=== PATIENT | male | born 1990 | race Caucasian/White ===

== ENCOUNTER 2022-10-09 08:32 | Emergency (ER) | payer OTHER, SELFPAY ==
[2022-10-09 08:40] VITALS: BP 127/56; PULSE 83; RESP 16; TEMP 36.9; O2SAT 97
--- NOTE | 2022-10-09 09:07 | ED.GENADULT ---
HPI - General Adult General Chief complaint: Urogenital-Male Stated complaint: Headache/Low Back Pain Time Seen by Provider: 10/09/22 09:11 Source: patient Mode of arrival: ambulatory Limitations: no limitations History of Present Illness HPI narrative: 32-year-old male presenting for complaint of headache, feeling lightheaded and having bilateral low back pain since yesterday. Pain is worse in buttocks and back of thighs. He endorses intermittent hot and cold episodes And difficulty sleeping due to the pain. He denies sick contacts. He is not vaccinated for COVID or flu. yesterday he took migraine medication without relief in symptoms. He denies shortness of breath, wheezing, abd pain, nausea, vomiting, diarrhea, hematuria. He smokes over 2 packs per day. Also smokes marijuana. He denies alcohol use. He said he drinks large amount of soda and coffee daily. Related Data Home Medications Medication Instructions Recorded Confirmed sumatriptan succinate 25 mg tablet 25 mg PO USEASDIRECTD 10/09/22 10/09/22 Allergies Allergy/AdvReac Type Severity Reaction Status Date / Time Penicillins Allergy Rash Verified 10/09/22 09:34 Review of Systems Review of Systems: ROS per HPI All systems reviewed & are unremarkable except as noted in HPI and below PMFSH Comments At time of signature, I have reviewed and agree with nursing past medical, surgical, social and family history unless otherwise noted. Please see nursing chart for further information. There is no relevant family history pertinent to the presenting complaint Exam Narrative: GENERAL: ill-appearing, nontoxic HEAD: Normocephalic, atraumatic. EYES: EOMI. No redness or drainage. Conjunctivae normal. ENT: Mucous membranes pink and moist. No rhinorrhea. TMs normal bilaterally. Throat normal. Uvula midline. NECK: Normal AROM. Supple. right anterior cervical lymphadenopathy. CHEST: Clear to auscultation. HEART: Regular rate and rhythm. ABDOMEN: Soft, nontender, nondistended, normal active bowel sounds. No CVA tenderness. MUSCULOSKELETAL: No bony tenderness. EXTREMITIES: Normal range of motion. No edema. SKIN: Warm, dry, scattered scabs to bilateral arms. Capillary refill normal. Normal skin turgor. NEURO: No focal deficits. Alert and oriented x3. Gait steady. PSYCH: Normal affect. Course Course Emergency Course: Patient is aware of diagnosis, understands and agrees to treatment plan. Anticipatory guidance given. Patient agrees to follow-up as directed and is aware of reasons to seek care at the emergency department. Portions of this record may have been created with voice recognition software Level of Care: Express Care Visit Vital Signs Vital signs: Vital Signs Temperature 98.4 F 10/09/22 08:40 Pulse Rate 83 10/09/22 08:40 Respiratory Rate 16 10/09/22 08:40 Blood Pressure 127/56 L 10/09/22 08:40 Pulse Oximetry 97 10/09/22 08:40 Oxygen Delivery Room Air 10/09/22 08:40 Temperature 98.4 F 10/09/22 08:40 Pulse Rate 83 10/09/22 08:40 Respiratory Rate 16 10/09/22 08:40 Blood Pressure 127/56 L 10/09/22 08:40 Pulse Oximetry 97 10/09/22 08:40 Oxygen Delivery Room Air 10/09/22 08:40 Medical Decision Making MDM Narrative Medical decision making narrative: urine result reviewed, pt admits to drinking minimal/rare water mostly soda. He will f/u with pcp. flu B positive. Advised supportive measures and signs/symptoms to go to the ER. Pt is appropriate for outpt treatment and f/u. Differential Diagnosis Differential Diagnosis: Influenza, viral infection, bronchitis, UTI, renal stones Vital Signs Vital Signs: Vital Signs Temperature 98.4 F 10/09/22 08:40 Pulse Rate 83 10/09/22 08:40 Respiratory Rate 16 10/09/22 08:40 Blood Pressure 127/56 L 10/09/22 08:40 Pulse Oximetry 97 10/09/22 08:40 Oxygen Delivery Room Air 10/09/22 08:40 Temperature 98.4 F 10/09/22 08:40 Pu
== END 2022-10-09 10:04 | disposition home or self-care (01) ==
PROVIDERS: Emergency Provider Nurse Practitioner Family
DX: J10.1 Influenza due to other identified influenza virus with other respiratory manifestations (principal); M54.50 Low back pain, unspecified; F17.200 Nicotine dependence, unspecified, uncomplicated; F12.90 Cannabis use, unspecified, uncomplicated
CPT/HCPCS: 81003; 87086; 87804; 99213; G0463

== ENCOUNTER 2023-11-14 14:46 | Emergency (ER) | payer OTHER, SELFPAY ==
[2023-11-14 15:03] VITALS: BP 120/82; PULSE 82; RESP 18; TEMP 37.2; O2SAT 99
--- NOTE | 2023-11-14 15:28 | ED.GENADULT ---
HPI - General Adult General Chief complaint: Eye Problems Stated complaint: burning eyes and lungs Source: patient, RN notes reviewed and old records reviewed Mode of arrival: ambulatory Limitations: no limitations History of Present Illness HPI narrative: 33-year-old male patient presents to [facility] with complaint bilateral eye irritation, tearing yesterday then today woke up with cough, congestion, myalgia, fatigue. Patient states to comb COVID test was negative but is unsure if it was this a.m. or last p.m.. Patient not taking any [id number] medications for symptoms. Patient denies weakness, dizziness, shortness of breath, chest pain. MD complaint: Cough, congestion Onset (ago): day(s) (1) Related Data Allergies Allergy/AdvReac Type Severity Reaction Status Date / Time Penicillins Allergy Rash Verified 11/14/23 15:31 Review of Systems Constitutional: Constitutional: Reports no additional constitutional complaints, Reports body ache(s), Denies chills, Reports fatigue, Denies fever(s) and Denies headache(s) Eyes: Eyes: Reports no additional eye complaints and Denies blurry vision ENT: Reports system reviewed and no additional complaints, except as documented, Denies vertigo, Denies dizziness, Denies ear discharge, Denies otalgia, Denies facial pain, Denies headache(s), Reports nasal congestion, Denies nasal discharge, Denies sinus pain, Denies sinus pressure and Denies sore throat Cardiovascular: Cardiovascular: Reports no additional cardiovascular complaints, Denies chest pain, Denies chest pain at rest, Denies rapid heart rate and Denies dyspnea Respiratory: Respiratory: Reports no additional respiratory complaints, Denies chest congestion, Reports cough, Denies pain on inspiration, Denies pain with cough and Denies dyspnea Gastrointestinal: Gastrointestinal: Denies abdominal pain, Denies diarrhea, Denies nausea and Denies vomiting Integumentary/Breasts: Skin/Breast: Denies rash Neurologic: Reports system reviewed and no additional complaints, except as documented, Denies vertigo, Denies dizziness and Denies headache(s) Endocrine: Endocrine: Denies fatigue PMFSH Comments At the time of my signature, I reviewed and agree with the nursing past medical, surgical, social, and family history. There is no relevant family history pertinent to the patient complaint. Exam Const: General: cooperative, healthy appearing, no acute distress and well nourished Nutritional Appearance: well nourished Orientation/consciousness: patient oriented x3 Limitations: no limitations HENMT: Head: normal to inspection and normocephalic Ears: external ears normal, TM's normal bilaterally, mastoids normal and Abnormal EAC present Face/Nose/Sinus: normal facial exam Face and sinus: normal facial exam Mouth: Yes Normal oral and palatal mucosa present, Yes oropharynx normal and Yes moist mucous membranes Throat: posterior oropharynx normal, tonsils normal, uvula midline and no uvular edema Eyes: General: appearance normal, both eyes and all related structures Sclera: sclerae normal Pupils: Equal, round and reactive pupils present Resp: Effort & Inspection: normal respiratory effort, able to speak in complete sentences, no audible wheezes, no cough, no respiratory distress and no retractions Auscultation: clear to auscultation bilaterally, no crackles, no rales, no rhonchi and no wheezes Cardio: Rate: regular rate Rhythm: regular rhythm Skin: General skin exam: normal color and no rashes or lesions noted Neuro: General: patient oriented x3 Cranial nerves: Yes Equal, round and reactive pupils present Psych: Appearance: grossly normal Mental Status: mental status grossly normal Speech and movement: Normal speech and movement present Affect: normal affect Course Course Emergency Course: Patient is aware of diagnosis, understands and agrees to treatment plan.? Anticipatory guidance given.? Patient agrees to follow-up as directe
== END 2023-11-14 15:44 | disposition home or self-care (01) ==
PROVIDERS: Emergency Provider Registered Nurse
DX: B34.9 Viral infection, unspecified (principal); Z20.822 Contact with and (suspected) exposure to COVID-19
CPT/HCPCS: 87426; 87804; 99213; G0463

== ENCOUNTER 2024-01-14 11:36 | Emergency (ER) | payer OTHER, SELFPAY ==
[2024-01-14 11:41] VITALS: BP 115/69; PULSE 88; RESP 16; TEMP 36.6; O2SAT 99
--- NOTE | 2024-01-14 12:50 | ED.GENADULT ---
HPI - General Adult General Chief complaint: Upper Respiratory Infection Stated complaint: Body Ache/Cough Source: patient Mode of arrival: ambulatory Limitations: no limitations History of Present Illness HPI narrative: Patient presents for evaluation of sick symptoms. He indicates he developed a dry cough 2 days ago. Today he noticed diffuse myalgias and joint pain. His and son had influenza last week. Denies any fever, chills, nausea, vomiting, diarrhea, shortness of breath. He does smoke 2 packs per day. He tried taking airborne for his symptoms. No additional complaints or concerns. Related Data Allergies Allergy/AdvReac Type Severity Reaction Status Date / Time Penicillins Allergy Rash Verified 01/14/24 11:41 Review of Systems Review of Systems: CONSTITUTIONAL: Denies fever, chills, or sweats. EYES: Denies visual changes, redness, or discharge. ENT: Denies rhinorrhea, congestion, sore throat, or otalgia. CARDIOVASCULAR: Denies chest pain, palpitations, or edema. RESPIRATORY: Reports cough. Denies SOB or wheezing GASTROINTESTINAL: Denies abdominal pain, nausea, vomiting, or diarrhea. GENITOURINARY: Denies dysuria or hematuria. SKIN: Denies rash or itching. MUSCULOSKELETAL: Reports generalized body aches NEUROLOGIC: Denies headache, numbness, dizziness, or weakness. PSYCHIATRIC: Denies anxiety or depression. [facility] Past Medical History Medical History No pertinent past medical history Surgical History Surgical History No pertinent past surgical history Family History Family History Father Heart disease Mother No problems noted. Social History Social History Smoking packs per day: 2 Smoking cigarettes per day: 40.0 Smoking status: Current every day smoker Tobacco type: cigarettes Alcohol intake: never Substance use: never Substance use type: marijuana Do You Feel Safe in your Home?: Yes Lack of Transportation: No Lack of Food: Never True Current Housing: I Have Housing Concerned About Future Housing: No Difficulty Paying Gas/Electric Bills: No Difficulty Paying for Meds: No Currently Unemployed: No Education: High School Diploma/GED Difficulty w/ Childcare or Family Care: No Gender identity (if verbalized by the patient): Male Sexual Orientation (if Verbalized by the Patient): Straight or Heterosexual Spiritual care concerns: No Exam Narrative: GENERAL: Well-appearing, well-nourished, and in no acute distress. HEAD: Normocephalic, atraumatic. EYES: PERRLA and EOMI. ENT: Nares clear, no rhinorrhea or epistaxis. Mucous membranes moist. Oropharynx without tonsillar hypertrophy exudate or other lesions. Bilateral TMs pearly garcia nonbulging NECK: Supple. No adenopathy or masses. No carotid bruits or JVD CHEST: Clear to auscultation. No respiratory distress. No wheezes rales or rhonchi HEART: Regular rate and rhythm. No murmur heard. Normal peripheral pulses. ABDOMEN: Soft, nontender, nondistended, normal active bowel sounds. EXTREMITIES: Normal range of motion. No edema. SKIN: Warm, dry, no rash. NEURO: No focal deficits. Alert and oriented x3. PSYCH: Normal mood and affect. Course Course Emergency Course: This is a 33-year-old male who presented for evaluation of generalized body aches after recent flu exposures. His influenza here is negative. I did recommend chest x-ray which she declined. He does not have any adventitious lung sounds. Based upon his current symptoms in setting of recent exposures, I suspect he does indeed have influenza. Through shared decision making opted to proceed with Tamiflu. Increase hydration. [id number] agents for symptom management. Advised on smoking cess
== END 2024-01-14 12:55 | disposition home or self-care (01) ==
PROVIDERS: Emergency Provider Nurse Practitioner
DX: B34.9 Viral infection, unspecified (principal); F17.210 Nicotine dependence, cigarettes, uncomplicated; Z20.822 Contact with and (suspected) exposure to COVID-19
CPT/HCPCS: 87081; 87426; 87804; 87880; 99213; G0463

== ENCOUNTER 2024-12-09 13:42 | Emergency (ER) | payer OTHER, SELFPAY ==
[2024-12-09 13:48] VITALS: BP 107/76; PULSE 84; RESP 18; TEMP 36.9; O2SAT 98
--- OUTSIDE RECORDS SUMMARY | 2024-12-09 14:39 | XMS_ITS | Clinical Summary ---
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 Gender Identity Not on file Sexual Orientation Not on file Plan of Treatment Not on file Insurance [facility] [employer] [place] Member Subscriber Plan / Payer (Ef fective 2023-Present) Name:Vladimir Link Relation to Subscriber:Self Name:Vlaidmir Link Payer ID:[id number] (NAIC) Type:COMMERCIAL Address: [address] [facility] Address: [address] [place] [address] Care Teams Cooling Room Attendant Relationship Specialty Start Date End Date Mary Arreola NP [address] [place] [address] PCP - General Family Medicine 06/06/24
--- OUTSIDE RECORDS SUMMARY | 2024-12-09 14:39 | XMS_ITS | Continuity of Care Document ---
Author Organization [employer] Address [address] [place] [id number] Phone Care Team Providers Care High Reach Operator Name Role Phone Mary Abdullahi Unavailable Unavailable Allergies, Adverse Reactions, Alerts Substance Reaction Status Criticality amoxicillin Hives/Skin Rash Active No Informati on Medications Medication Instructions Dosage Effective Dates (start - stop) Status Comments sumatriptan 25 mg tablet take 1 tablet by oral route once with fluids as early as possible after the onset of a migraine attack;may repeat after 2 hours if headache returns, not to exceed 200mgin 24hrs 25 MG - Active Procedures Procedure Date OFFICE/OUTPATIENT VISIT, EST OFFICE/OUTPATIENT VISIT, EST OFFICE/OUTPATIENT VISIT, EST Rapid COVID OFFICE/OUTPATIENT VISIT, NEW OFFICE/OUTPATIENT VISIT, EST OFFICE/OUTPATIENT VISIT, EST OFFICE/OUTPATIENT VISIT, EST OFFICE/OUTPATIENT VISIT, EST OFFICE/OUTPATIENT VISIT, EST OFFICE/OUTPATIENT VISIT, EST OFFICE/OUTPATIENT VISIT, EST Advance Directives Directive Yes / No Effective Date File Name No Information Encounters Encounter Description Practice Location Reason(s) For Visit Diagnoses Date Provider Providers Copied on Encounter [facility], [address] [place] [address], [address], [place] tel:[phone] [place] No Information Maxwell Hernandez. [address] [place] [address], [facility], . tel:[phone] OFFICE/OUTPA TIENT VISIT, [facility], [address] [place] [address], [facility], tel: [phone] [facility] check up (chief complaint) Chest pain, unspecifiedMig georges with aura 4 Maxwell Hernandez. [address] [place] [address], [facility], . tel:[phone] [facility], [address] [place] [address], [facility], tel:[phone] [facility] No Information 4 Cachorro Machado. [address] [place] [address], [facility], . tel:[phone] [facility], [address] [place] [address], [facility], tel:[phone] [facility] Update (chief complaint) Mass of submandibular region 2 Cachorro Machado. [address] [place] [address], [facility], . tel:[phone] OFFICE/OUTPA TIENT VISIT, [facility], [address] [place] [address], [facility], tel:[phone] [facility] numbness hands and face (chief complaint) Nonintractable episodic headache, unspecified headache typeMass of submandibular region 2 Cachorro Machado. [address] [place] [address], [facility], . tel:[phone] OFFICE/OUTPA TIENT VISIT, [facility], [address] [place] [address], [facility], tel:[phone] [facility] work note (chief complaint) Paresthesia and pain of both upper extremitiesMix ed hyperlipidemia Encounter to obtain excuse from workEncounter for screening for cardiovascular disorders 1 Cachorro Tavarez [address] [place] [address], [facility], . tel:[phone] OFFICE/OUTPA TIENT VISIT, [facility], [address] [place] [address], [facility], tel:[phone] [place] DIZZY/VERT IGO (chief complaint) NUMBNESS L HAND AND ARM (chief complaint) WAVES IN EYESIGHT (chief complaint) Contact With And (suspected) Exposure To COVID-19Headac he, unspecifiedNum bness of left handPatent foramen ovaleSmoker unmotivated to quitVisual symptoms Aug-0 9-202 1 Titi Hill. [address] [place] [address], [facility], . tel:[phone] OFFICE/OUTPA TIENT VISIT, [facility], [address] [place] [address], [facility], tel: [phone] [facility] TALK WITH DR (chief complaint) Tooth abscessFamily history of rheumatoid arthritis Sep-1 6201 9 No Information OFFICE/OUTPA TIENT VISIT, [facility], [address] [place] [address], [facility], tel:[phone] [place] Sore throat (chief complaint) Pain, unspecified Sep-0 8201 9 Stendeback Karely. [address] [place] [address], [facility], . [phone] OFFICE/OUTPA TIENT VISIT, [facility], [address] [place] [address], [facility], tel:[phone] [place] abscess tooth (chief complaint) Tooth abscess May-0 7 Noelle Pacheco. [address], [place], [facility]. tel:[phone] [facility], [address] [place] [address], [facility], [place] tel:[phone] [place] Family history of ringworm Aug-2 5201 6 Chrissy Alexis. [address], [place], [facility], [place]. tel:[phone] OFFICE/OUTPA TIENT VISIT, [facility], [address] [place] [address], [facility], [place] tel:[phone] [facility] physical (chief complaint) Encounter for other general examinationMix ed hyperlipidemia 0 5 No Information OFFICE/OUTPA TIENT VISIT, [facility], [address] [place] [address], [facility], tel:[phone] [facility] EAR PROBLEM (chief complaint) Mixed hyperlipidemia Impacted cerumen 3 5 Miraloren Machado. [address] [place] [address], [facility], . tel:[phone] [facility], [address] [place] [address], [facility], tel:[phone] [facility] Mixed Hyperlipidemia Therapeutic Drug Monitoring 3 [facility]. [address] [place] [address], [facility], . tel:[phone] OFFICE/OUTPA TIENT VISIT, [facility], [address] [place] [address], [facility], tel:[phone] [place] chest pain (chief complaint) Mixed Hyperlipidemia Chest pain 3 Schwadrianat Loretta. [address] [place] [address], . tel:[phone] OFFICE/OUTPA TIENT VISIT, [facility], [address] [place] [address], [facility], tel:[phone] [facility] Med Refill (chief complaint) Other and unspecified hyperlipidemia Therapeutic Drug Monitoring 0 3 Cachorro Machado. [address] [place] [address], [facility], . tel:[phone] [facility], [address] [place] [address], [facility], tel:[phone] [facility] Dyslipidemia 3 Cachorro Machado. [address] [place] [address], . tel:[phone] Family History Family Member Type Diagnosis Age At Onset Father Problem (finding) Myocardial infarction Father Problem (finding) raised blood lipids Brother Problem (finding) raised blood lipids Payers Payer name Insurance type Covered green party ID Authoriza tion(s) No Information Social History Type Description Quantity Date Captured Comments Alcohol Use Details Unknown Caffeine Use Details Unknown Tobacco Use Status Smoking Status No Information Sex Male Chief Complaint And Reason For Visit No Information Reason For Referral Reason For Referral No Information Plan Of Treatment Date Type Action Status Goal Lipid panel. Due on due Goal Hepatitis C scre ening. Due on due Goal Unhealthy drug u se screening. Due on due Goal Depression scree beatrice. Due on due Goal Td vaccine. Due on due Goal Tdap. Due on due Goal Influenza vaccine. Due on due Goal Td vaccine. Due on due Goal Unhealthy drug u se screening. Due on due Goal Influenza vaccine. Due on due Goal Depression scree beatrice. Due on due Goal Tdap. Due on due Goal Hepatitis C scre ening. Due on due Goal Lipid panel. Due on due Goal Influenza vaccine. Due on due Goal Td vaccine. Due on due Goal Lipid panel. Due on due Goal Hepatitis C scre ening. Due on due Goal Unhealthy drug u se screening. Due on due Goal Depression scree beatrice. Due on due Goal Tdap. Due on due Goal Td vaccine. Due on due Goal Depression scree beatrice. Due on due Goal Influenza vaccine. Due on Oc due Goal Tdap. Due on due Goal Lipid panel. Due on due Goal Depression scree beatrice. Due on due Goal Influenza vaccine. Due on Se due Goal Td vaccine. Due on due Goal Tdap. Due on due Goal Lipid panel. Due on due Goal Tobacco cessation counseling completed Goal Influenza vaccine. Due on due Goal Td vaccine. Due on due Goal Depression scree beatrice. Due on due Goal Tdap. Due on due Goal Lipid panel. Due on due Goal Tobacco cessation counseling completed Goal Lipid panel. Due on due Goal Influenza vaccine. Due on due Goal Td vaccine. Due on due Goal Tdap. Due on due Goal Depression scree beatrice. 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 [facility]. Evaluate and treat Appointment date/timeframe: 06/12/2021 ordered Referral Ordered: CHEST X-RAY - 2 View Frontal Lateral ordered Patient Education sumatriptan 25 mg table t completed Patient Education Numbness and Tingling: Care Instructi~ completed Future Order: Lab Order LIPID PA CALLUM ([id number]), Sent on: Sent Future Order: Lab Order CBC W/DI FF ([id number]), Sent on: Sent Future Order: Lab Order CMP ([id number]), Se nt on: Sent Future Order: Lab Order LIPID PA CALLUM ([id number]), Sent on: Sent Future Order: Lab Order YOMI ([id number]), Or dered on: Ordered Future Order: Lab Order CBC W/ D iff ([id number]), Ordered on: Ordered Future Order: Lab Order LIPID PA CALLUM ([id number]), Ordered on: Ordered History Of Present Illness Encounter Date Complaint History Of Prese nt Illness check up He states she ge ts hands and face numbness, vision issues; he notices peripheral changes, gets a blank spot in his vision and sees color spots in vision at times. This occurring more often recently. He states he goes through periods where it does not occur as much but past 2 weeks the vision changes are occurring more frequently. He states he takes Imitrex for this. He smokes 3 packs of cigarettes per day. Update Rt submandibular mass for the last two years. Comes and goes. Not associated with infection although they do get slightly worse with certain food intake. Differential diagnosis includes LAD or submandibular (salivary) gland obstruction. Otolaryngology consult was recommended. numbness hands and face Patient came in today accompanied by his . Patient has been in the emergency room due to tingling of the right face, right upper extremity and right upper leg. His emergency room visit included blood work that were considered normal. He also had a CT scan of his head with no abnormality noted. Medically, he has noted symptoms seems to be associated with headaches. He has no previous history of migraine episodes. States that episodes only occurs maybe once every couple months. Prophylactic therapy may not be necessary. The use of Imitrex was recommended. He was advised observe for worsening signs or symptoms.Rt submandibular mass for the last two years. Comes and goes. Not associated with infection although they do get slightly worse with certain food intake. Differential diagnosis includes LAD or submandibular (salivary) gland obstruction. Otolaryngology consult was recommended.Patient ws advised on getting a lipid panel down the future work note Patient has been screened for CoVid 19. He answered no to all the questions asked. His temperature when initially evaluated was ----97.2Patient presented to the emergency room at [facility] with complaint of tingling to the left hand and face. Because of his very strong family history of early coronary artery disease, he was concerned of an acute myocardial ischemia. He did have a CT scan of his head, chest x-ray, EKG and labs that did not reveal any acute abnormality. A copy of the results were handed to the patient. On examination today, patient describes episodic tingling of the hands bilaterally. 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 He has noticeable calluses on both hands. We discussed possibility of carpal tunnel syndrome and/or cubital tunnel syndrome. He currently does not have much symptoms on his clinic visit. He would like to go back to work as soon as possible. Letter was given to the patient stating that he is going back to work on Saturday, June 19, 2021 with no restriction. NUMBNESS L HAND AND ARM WAVES IN EYESIGHT DIZZY/VERTIGO PT PRESENTS WITH DIZZINESS AND VERTIGO, WAVY VISION FEELS LIKE THE ROOM IS SPINNING (ONLY WHEN LAYING DOWN.)PT PRESENTS WITH NUMBNESS IN WRIST DOWN INTO HAND.PT C/O HEADACHE AND RATES THE PAIN AT A 7 WHEN HE IS AT REST BUT DESCRIBES PAIN REAL BAD WHEN HE COUGHS. STATES COUGH IS DUE TO SMOKING AND HIS WORK ENVIRONMENT. STATES THAT HE IS VERY TIRED AND JUST DOESN'T FEEL WELL. STATES THAT HE HAS NOT BEEN EXPOSED TO COVID THAT HE KNOWS OF. HAS NOT BEEN VACCINATED FOR COVID.REFUSES VACCINATIONS BECAUSE HIS SON IS AUTISTIC AND HE BELIEVES THAT VACCINATIONS ARE THE CAUSE.RAPID COVID IS NEGATIVE. WAVES IN EYESIGHT (comments) 31 YO M, WITH HX OF PATENT FORAMEN OVALE,HX OF HYPERLIPIDEMIA- YOUNG ADULT-OFF MEDS X SEVERAL YEARSC/O DIZZINESS/HEADACHE, LEFT HAND NUMBNESS/VISUAL SYMPTOMS/WAVES -INTERMITTENTLYNO NECK STIFFNESSNO WEAKNESS IN HANDS OR FEETNO TRAUMASMOKES 2+PPD X YRS TALK WITH DR Had 3 teeth pranav tami and he is having pain. No antibiotics were given. When he eats certain foods his throat on right side swells. Discuss autoimmune history for his testing.Patient thinks he has BronchitisThe last of three teeth on left lower arch were removed 3 days ago. Still has swelling and tenderness. Also has strange sensation on rt jaw when he eats certain foods. Pts Mom has hx of RA, and sjogren's syndrome. Pt wants to be tested for autoimmune disease.States Vladimir JoRenita is the same , Dad jason feel he is making any progress in school.Yolanda is working as a body piercing. Sore throat (comments) Patient p resents with a 4-5 day history of left sided external throat pain that is not present with swallowing, but is noticable with coughing or pressing on the area with his hand. He denies having an abscess tooth, foul taste in his mouth, breath odor, difficulty swallowing, fever, or recent exposure to strep. Notably the patient smokes cigarettes and is exposed to toxic chemicals at work. He has not had a primary care visit in several years, Dr. Ivory is his PCP of record. Sore throat Onset: 5 Days. S ymptoms are associated with smoker. Symptoms are not associated with dental infection, exposure to strep, history of allergies, history of asthma, recent cold, recent travel and sick family member. Associated symptoms include fatigue and pharyngitis. Pertinent negatives include chills/rigors, cough, dyspnea, facial pain, fever, headache, hemoptysis, myalgia, nasal congestion, otalgia, postnasal drainage, rash, rhinitis, sinus pressure, sputum, tooth pain or wheezing. abscess tooth Pt presents tosoraya y with c/o toothache on lower right side for appx 1 week. It started swelling yesterday and is preventing him from opening his mouth very farHe tells me that he has had a lot of work done on his teeth. He only actually has one tooth on the bottom row of his mouth. He says that this tooth is holding on the partial that he has in. He has had multiple abscesses in his mouth. He notes that he does have a dentist and he always wants him to be on antibiotics before he will do anything for him. He says that it just started hurting a few days ago and now it is swelling into his face and jaw and he is not able to open his mouth very wide. He has not had any discharge that he is aware of. He comes in today hoping for an antibiotic before he goes to see his dentist as he knows that he will need the infection gone before he will do anything. He is allergic to PCN. physical Pt here to get p hysical exam for application for foster care. 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 EAR PROBLEM Pt here to see Artur lopez for decreased hearing to lt ear. States problem started safia 1month ago and lasted safia 3 weeks. States it is doing better now. Having no ear pain or hearing loss. States he removed large ball of wax. He placed an ear wax remover on the left ear but not the rt. Pt also needs lab work done and has not been taking med due to loss of job. Is working at this time. He has been lost to follow up apparently lost his insurance and now lives in [facility]. He is now and has a child. His father has a very complex CAD history that started at a young age. His Trig was extremely elevated and was first noted at 15 yo. chest pain The patient pres ents with a complaint of chest pain. The symptoms began 1 day ago. The patient denies dyspnea, palpitations and vomiting. Relevant history for this patient includes tobacco use. The patient denies any abdominal pain or headache. Patient complains of pain on the right side of his chest that hurts when he takes a deep breath or coughs since yesterday. Med Refill Refill Pravastat in and Tricor, will need order for lab work.Has a history of elevated triglyceride and LDL on tricor and pravastatin. Last lab work was 01/13. Has been off meds for the last two weeks. Functional Status Date Functional Assessmen t No Information Instructions Date Instruction Additional Infor mation Importance of treatm ent regimen as well as side effect discussed Related to Nonintractable episodic headache, unspecified headache type Sumatriptan sent to pharmacy. No prophylactic Tx Related to Nonintractable episodic headache, unspecified headache type ENT consult recommended Related to Mass of submandibular region Observe for worsening s/s Relate d to Mass of submandibular region Importance of proper nutrition and activity, weight management Related to Nonintractable episodic headache, unspecified headache type Observe for worsenin g signs or symptoms. Fall precaution Related to Nonintractable episodic headache, unspecified headache type Importance of proper nutrition and activity, weight management Related to Paresthesia and pain of both upper extremities Observe for worsenin g signs or symptoms Related to Paresthesia and pain of both upper extremities Consider nerve condu ction study if s/s persist Related to Paresthesia and pain of both upper extremities Proper diet, exercis e/activity. Currently not on meds Related to Mixed hyperlipidemia Proper weight manage ment discussed at length Related to Mixed hyperlipidemia Follow a low fat/moe orie diet. Risk stratification/modification Related to Mixed hyperlipidemia Importance of proper nutrition and activity, weight management Related to Encounter to obtain excuse from work Observe for worsenin g signs or symptoms Related to Encounter to obtain excuse from work Return to work with no restriction on 06/19/2021 Related to Encounter to obtain excuse from work ATB for 10 days, ibuprofen for p ain Related to Tooth abscess Labs ordered to rule out disease Related to Family history of rheumatoid arthritis take ibuprofen 600mg every 8 hours for the next 48-72 hours as a trial to see if this improves the pain. After that time if this is helping begin taking ibuprofen as needed. Always take ibuprofen with a light snack.Do not press on the area of your neck, as you may be irritating it further. If you have not improved in 3-5 days, please make a follow-up appointment at this clinic or with Dr. Ivory. If you have improved please make a well-visit appointment with Dr. Ivory for routine care. Stop smoking. Wear a mask at work to avoid breathing toxic chemicals. Related to Pain, unspecified Pt is prescribed cli ndamycin 600 mg one tab po qid x 10 days. He is to call his dentist soon for appointment. Pt voiced understanding. He will return here or to ER if he worsens or does not improve before seeing his dentist. Related to Tooth abscess see plan Related to Tooth abscess Follow a low sodium diet. Relate d to Mixed hyperlipidemia Stop smoking. Related to Mixed hyperlipidemia Increase activity. Related to Mi xed hyperlipidemia Use OTC cerumenolytic on the rt ear Related to Impacted cerumen Follow a low fat, low carb diet. Related to Mixed hyperlipidemia Check CMP and lipids. Related to Mixed hyperlipidemia Increase activity. Related to Mi xed hyperlipidemia see plan Related to Chest pain Follow the prescribed diet. Rela darrell to Therapeutic Drug Monitoring Take medications as instructed. Related to Therapeutic Drug Monitoring proper diet and exercise Related to Other and unspecified hyperlipidemia Refill meds for one month Relate d to Other and unspecified hyperlipidemia Because of the recen t discontinuance of meds, will postpone his labs Related to Other and unspecified hyperlipidemia Assessments Type Assessment Date No Information Patient Care Teams Name Effective Dates (start - stop) Status Members No Information
--- OUTSIDE RECORDS SUMMARY | 2024-12-09 14:39 | XMS_ITS | Referral Summary ---
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
--- OUTSIDE RECORDS SUMMARY | 2024-12-09 14:39 | XMS_ITS | Clinical Summary ---
Author Organization [facility] Address [address] [place] [address] Phone Care Team Providers Care Logistics Analytics Manager Name Role Phone Carter Ivory MD Primary Care Provider [phone] Ashlee Junior APRN, SALES REPRESENTATIVE CONSULTANT Unavailable [phone] Allergies Active Allergy Reactions Criticality Noted Date Comments Amoxicillin Unknown 03/10/2017 Medications Rizatriptan Benzoate 5 MG TABLET DISPERSIBLEIndi cations:Episodi c migraine Take 1 Tablet by mouth once as needed for Migraine or Headaches. 10 Tablet 3 5 Active ibuprofen (MOTRIN) 200 MG TabletIndicatio ns:Migraine Take 400 mg by mouth every 8 hours as needed for Mild or more severe pain. Indications: Migraine Headache Active HYDROcodone-jo taminophen (NORCO) 5-325 MG Tablet Take 1-2 Tabs by mouth every 4 hours as needed for Pain. 20 Tab 0 7 12/02/19 25 Discontinu ed(Med List Clean Up) ibuprofen (MOTRIN) 800 MG Tablet Take 1 Tab by mouth every 8 hours. 30 Tab 0 7 12/03/19 25 Discontinu ed(Duplica te Order) traMADol (ULTRAM) 50 MG Tablet Take 1 Tab by mouth every 6 hours as needed for Moderate or more severe pain. 10 Tab 9 12/02/19 25 Discontinu ed(Therapy completed) SUMAtriptan (IMITREX) 25 MG Tablet Take 25 mg by mouth once as needed. Use as directed. May repeat dose in 2 hours if headache recurs. 12/02/19 25 Discontinu ed(Alterna te therapy) Active Problems No known active problems Encounters Date Type Department Care Team Description 12/07/2024 Transcribe Orders [facility] Central Scheduling [address] [facility] [place] [id number] Ashlee Junior APRN, SALES REPRESENTATIVE CONSULTANT Episodic migraine (Primary Dx) 12/02/2024 4:00 PM LEVER MILLER Office Visit [facility] - Neurology [address] [phone] Ashlee Junior APRN, SALES REPRESENTATIVE CONSULTANT Episodic migraine (Primary Dx); Tobacco dependence syndrome Discharge Disposition: Discharged to home or Selfcare 12/02/2024 Travel from Last 3 Months Immunizations Immunization Administration Dates Next Due TDAP Vaccine 11/17/2021 Social History Tobacco Use Types Packs/Day Years Used Date Smoking Tobacco: Every Day Cigarettes Smokeless Tobacco: Never Alcohol Use Standard Drinks/Week Comments No 0 (1 standard drink = 0.6 oz pur e alcohol) Sex and Gender Information Value Date Recorded Sex Assigned at Not on file Legal Sex Male 11:34 PM CDT Gender Identity Not on file Sexual Orientation Not on file Last Filed Vital Signs Vital Sign Reading Time Taken Comments Blood Pressure 102/62 12/02/2024 3:35 PM LEVER MILLER Pulse 83 12/02/2024 3:35 PM LEVER MILLER Temperature 37 C (98.6 F) 12/02/2024 3:35 PM LEVER MILLER Respiratory Rate 16 11/17/2021 1:18 PM LEVER MILLER Oxygen Saturation 100% 12/02/2024 3:35 PM LEVER MILLER Inhaled Oxygen Concentration - - Weight 68.5 kg (151 lb 1.6 oz) 12/02/2024 3:35 P M LEVER MILLER Height 172.7 cm (5' 8 ) 12/02/2024 3:35 PM LEVER MILLER Body Mass Index 22.97 12/02/2024 3:35 PM LEVER MILLER Plan of Treatment Upcoming Encounters Date Type Department Care Team (Late st Contact Info) Description 01/13/2025 3:30 PM CDT Appointment [facility] MRI [address] [facility] [place] [phone] Ashlee Junior APRN, SALES REPRESENTATIVE CONSULTANT [address] [place] [address] Discharge Disposition: Discharged to home or Selfcare 02/24/2025 2:30 PM CDT Office Visit [facility] - Neurology [facility] [address] [place] [phone] Ashlee Junior APRN, SALES REPRESENTATIVE CONSULTANT [address] [place] [address] Health Maintenance Due Date Last Done Comments Hepatitis C Virus (HCV) Screening 1992 Pneumococcal Immunization Combined (1 of 2 - PCV) 2011 Influenza Immunization (#1) 2024 SARS-COV-2 Immunization ( - season) 2024 Td Immunization Every 10 Years (Adults With 1 Tdap) 11/17/2031 11/17/2021, 06/20/2006 Respiratory Syncytial Virus (RSV) Immunization (Adult) (1 - 1-dose 75+ series) 2067 Hepatitis B Immunization Completed 003, 07/23/2002, 05/21/2002 DTaP/Tdap/Td Immunization Discontinued 2021, 06/20/2006, 07/08/1997, Additional history exists Meningococcal Immunization (ACWY) Aged Out No longer eligible based on patient's age to complete this topic Rotavirus Immunization Aged Out No lo nger eligible based on patient's age to complete this topic Insurance Care Teams Logistics Analytics Manager Relationship Specialty Start Date End Date Carter Ivory MD [address] [place] [id number] PCP - General Internal Medicine 11/17/21 Ashlee Junior APRN, SALES REPRESENTATIVE CONSULTANT [address] [place] [address] Nurse Practitioner Advanced Practice Nurse 12/02/24
--- OUTSIDE RECORDS SUMMARY | 2024-12-09 14:41 | XMS_ITS | Continuity of Care Document ---
Author Organization [facility] Address [address] [place] [address] Phone Care Team Providers Care Property Management Accountant Name Role Phone Mary Abdullahi Unavailable Unavailable [...] Date Provider Providers Copied on Encounter [facility], [address] [place] [address], [id number], [place] tel:[phone] Taylor No Information Maxwell Hernandez. [address] [place] [address], [facility], . tel:[phone] OFFICE/OUTPA TIENT VISIT, [facility], [address] [place] [address], [facility], tel: [phone] [facility] check up (chief complaint) Chest pain, unspecifiedMig georges with aura 4 Maxwell Hernandez. [address] [place] [address], [facility], . tel:[phone] [facility], [address] [place] [address], [facility], tel:[phone] [facility] No Information 4 Cachorro Machado. [address] [place] [address], [facility], . tel:[phone] [facility], [address] [place] [address], [facility], tel:[phone] [facility] Update (chief complaint) Mass of submandibular region 2 Cachorro Machado. [address] [place] [address], [facility], . tel:[phone] OFFICE/OUTPA TIENT VISIT, [facility], [address] [place] [address], [facility], tel:[phone] [facility] numbness hands and face (chief complaint) Nonintractable episodic headache, unspecified headache typeMass of submandibular region 2 Cachorro Machado. [address] [place] [address], [facility], . tel:[phone] OFFICE/OUTPA TIENT VISIT, [facility], [address] [place] [address], [facility], tel:[phone] [facility] work note (chief complaint) Paresthesia and pain of both upper extremitiesMix ed hyperlipidemia Encounter to obtain excuse from workEncounter for screening for cardiovascular disorders 1 Cachorro Tavarez [address] [place] [address], [facility], . tel:[phone] OFFICE/OUTPA TIENT VISIT, [facility], [address] [place] [address], [facility], tel:[phone] Taylor DIZZY/VERT IGO (chief complaint) NUMBNESS L HAND AND ARM (chief complaint) WAVES IN EYESIGHT (chief complaint) Contact With And (suspected) Exposure To COVID-19Headac he, unspecifiedNum bness of left handPatent foramen ovaleSmoker unmotivated to quitVisual symptoms Aug-0 9-202 1 Titi Hill. [address] [place] [address], [facility], . tel:[phone] OFFICE/OUTPA TIENT VISIT, [facility], [address] [place] [address], [facility], tel:[phone] [facility] TALK WITH DR (chief complaint) Tooth abscessFamily history of rheumatoid arthritis Sep-1 6201 9 No Information OFFICE/OUTPA TIENT VISIT, [facility], [address] [place] [address], [facility], tel:[phone] Taylor Sore throat (chief complaint) Pain, unspecified Sep-0 8201 9 Stendeback Karely. [address] [place] [address], [facility], . [phone] OFFICE/OUTPA TIENT VISIT, [facility], [address] [place] [address], [facility], tel:[phone] Taylor abscess tooth (chief complaint) Tooth abscess May-0 7 Noelle Pacheco. [address], [place], [facility]. tel:[phone] [facility], [address] [place] [address], [facility], [place] tel:[phone] Taylor Family history of ringworm Aug-2 5201 6 Chrissy Alexis. [address], [place], [facility], [place]. tel:[phone] OFFICE/OUTPA TIENT VISIT, [facility], [address] [place] [address], [facility], [place] tel:[phone] [facility] physical (chief complaint) Encounter for other general examinationMix ed hyperlipidemia 0 5 No Information OFFICE/OUTPA TIENT VISIT, [facility], [address] [place] [address], [facility], tel:[phone] [facility] EAR PROBLEM (chief complaint) Mixed hyperlipidemia Impacted cerumen 3 5 Miraloren Machado. [address] [place] [address], [facility], . tel:[phone] [facility], [address] [place] [address], [facility], tel:[phone] [facility] Mixed Hyperlipidemia Therapeutic Drug Monitoring 3 [facility]. [address] [place] [address], [facility], . tel:[phone] OFFICE/OUTPA TIENT VISIT, [facility], [address] [place] [address], [facility], tel:[phone] Taylor chest pain (chief complaint) Mixed Hyperlipidemia Chest pain 3 Schwadrianat Loretta. [address] [place] [address], . tel:[phone] OFFICE/OUTPA TIENT VISIT, [facility], [address] [place] [address], [facility], tel:[phone] [facility] Med Refill (chief complaint) Other and unspecified hyperlipidemia Therapeutic Drug Monitoring 0 3 Cachorro Machado. [address] [place] [address], [facility], . tel:[phone] [facility], [address] [place] [address], [facility], tel:[phone] [facility] Dyslipidemia 3 Cachorro Machado. [address] [place] [address], . tel:[phone] Family History Family Member Type Diagnosis Age At Onset Father Problem (finding) Myocardial infarction Father Problem (finding) raised blood lipids Brother Problem (finding) raised blood lipids Payers Payer name Insurance type Covered republican ID Authoriza tion(s) No Information Social History [...] Goal Influenza vaccine. Due on due Goal Lipid panel. Due on due Goal Hepatitis C scre ening. Due on due Goal Tdap. Due on due Goal Depression scree beatrice. Due on due Goal Td vaccine. Due on due Goal Unhealthy drug u se screening. Due on due Goal Influenza vaccine. Due on due Goal Tdap. Due on due Goal Depression scree beatrice. Due on due Goal Influenza vaccine. Due on due Goal Td vaccine. Due on due Goal Lipid panel. Due on due Goal Hepatitis C scre ening. Due on due Goal Unhealthy drug u se screening. Due on due Goal Lipid panel. Due on due Goal Tdap. Due on due Goal Td vaccine. Due on due Goal Depression scree beatrice. Due on due Goal Influenza vaccine. Due on Oc due Goal Lipid panel. Due on due Goal Tdap. Due on due Goal Td vaccine. Due on due Goal Influenza vaccine. Due on Se due Goal Depression scree beatrice. Due on due Goal Tobacco cessation counseling completed Goal Lipid panel. Due on due Goal Tdap. Due on due Goal Influenza vaccine. Due on due Goal Td vaccine. Due on due Goal Depression scree beatrice. Due on due Goal Tobacco cessation counseling completed Goal Td vaccine. Due on due Goal Influenza vaccine. Due on due Goal Depression scree beatrice. Due on due Goal Tdap. Due on due Goal Lipid panel. 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 [facility]. Evaluate and treat Appointment date/timeframe: 06/12/2021 ordered Referral Ordered: CHEST X-RAY - 2 View Frontal Lateral ordered Patient Education sumatriptan 25 mg table t completed Patient Education Numbness and Tingling: Care Instructi~ completed Future Order: Lab Order LIPID PA CALLUM ([id number]), Sent on: Sent Future Order: Lab Order CBC W/DI FF ([id number]), Sent on: Sent Future Order: Lab Order CMP ([id number]), Se nt on: Sent Future Order: Lab Order LIPID PA CALLUM ([id number]), Sent on: Sent Future Order: Lab Order YOMI ([id number]), Or dered on: Ordered Future Order: Lab Order CBC W/ D iff ([id number]), Ordered on: Ordered Future Order: Lab Order LIPID PA CALLUM ([id number]), Ordered on: Ordered History Of Present Illness [...] ----97.2Patient presented to the emergency room at [facility] with complaint of tingling to the left [...] 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 He has noticeable calluses on both hands. 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 EAR PROBLEM Pt here [...] lost his insurance and now lives in [facility]. He is now and has a child. [...] abscess see plan Related to Tooth abscess Increase activity. Related to Mi xed hyperlipidemia Stop smoking. Related to Mixed hyperlipidemia Follow a low sodium diet. Relate d to Mixed hyperlipidemia Increase activity. Related to Mi xed hyperlipidemia Check CMP and lipids. Related to Mixed hyperlipidemia Follow a low fat, low carb diet. Related to Mixed hyperlipidemia Use OTC cerumenolytic on the rt ear Related to Impacted cerumen see plan Related to Chest pain Because of the recen t discontinuance of meds, will postpone his labs Related to Other and unspecified hyperlipidemia Refill meds for one month Relate d to Other and unspecified hyperlipidemia proper diet and exercise Related to Other and unspecified hyperlipidemia Take medications as instructed. Related to Therapeutic Drug Monitoring Follow the prescribed diet. Rela darrell to Therapeutic Drug Monitoring Assessments Type Assessment Date No Information Patient Care Teams Name Effective Dates (start - stop) Status Members No Information
--- NOTE | 2024-12-09 15:02 | ED.EYEPROB ---
HPI - Eye Problem General Chief complaint: Upper Respiratory Infection Stated complaint: Runny Nose/Eye Problem Time Seen by Provider: 12/09/24 14:40 Source: patient, RN notes reviewed and old records reviewed Mode of arrival: ambulatory Limitations: no limitations History of Present Illness HPI Narrative: 34 year old male with itching burning red eyes with some swelling and crusting this morning and some nasal congestion and drainage. Patient denies any body aches, fevers, or chills today. Patient voices he did have fever, chills and body aches yesterday. Patient denies any visual changes or any sharp pain to his eyes, denies any known foreign body to his eyes. chief complaint: eye redness and other (runny nose) Onset (ago): day(s) (1) Onset description: awoke with symptoms (eyes) Eye Symptoms: burning, redness, itching and other (crusted this morning) Severity: moderate Treatments Prior to Arrival: none Related Data Home Medications ?Medication ?Instructions ?Recorded ?Confirmed ?Last Taken ?Type No Home Medications 12/09/24 12/09/24 Unknown History Allergies Allergy/AdvReac Type Severity Reaction Status Date / Time Penicillins Allergy Rash Verified 12/09/24 14:28 Review of Systems Review of Systems: CONSTITUTIONAL: Denies malaise, chills, sweats, or fever today but reports chills, fever and body aches yesterday EYES: Denies visual changes, redness, or discharge. ENT: Reports rhinorrhea, congestion, no sinus pain, no otalgia and no sore throat. CARDIOVASCULAR: Denies chest pain, palpitations, or edema. RESPIRATORY: Reports cough.? Denies dyspnea. GASTROINTESTINAL: Denies abdominal pain, nausea, vomiting, diarrhea SKIN: Denies rash or itching. MUSCULOSKELETAL: Denies myalgia today did have body aches yesterday NEUROLOGIC: Denies headache. All systems reviewed & are unremarkable except as noted in HPI and below PMFSH Past Medical History Medical History Hyperlipidemia Hx of migraines Surgical History Surgical History History of cholecystectomy Family History Family History Father Heart disease Mother No problems noted. Social History Social History Smoking packs per day: 2 Smoking cigarettes per day: 40.0 Smoking status: Current every day smoker Tobacco type: cigarettes Alcohol intake: never Substance use: never Substance use type: marijuana Do You Feel Safe in your Home?: Yes Lack of Transportation: No Lack of Food: Never True Current Housing: I Have Housing Concerned About Future Housing: No Difficulty Paying Gas/Electric Bills: No Difficulty Paying for Meds: No Currently Unemployed: No Education: High School Diploma/GED Difficulty w/ Childcare or Family Care: No Gender identity (if verbalized by the patient): Male Sexual Orientation (if Verbalized by the Patient): Straight or Heterosexual Spiritual care concerns: No Comments At time of signature, agree with nursing past medical, surgical, social and family history. There is no relevant family history pertinent to the presenting complaint Exam Narrative: GENERAL: Well-appearing, well-nourished, and in no acute distress. HEAD: Normocephalic EYES: PERRLA, conjunctivae and sclera red bilateral eyes, with some mucoid discharge, denies any sharp pain to eyes or vision changes Visual acuity bilateral 20/25 without corrective lenses, Patient reports itching to eyes with some mild swelling mucoid drainage noted. ENT: Nares clear, turbinates edematous and erythematous, clear discharge. Mucous membranes moist. TM pearly garcia with dull light reflex bilaterally; no tragal tenderness. Oropharynx erythematous without lesions. Tonsils not enlarged and without exudate, no drooling, no hoarseness, no trismus, uvula midline.post nasal discharge noted NECK: Supple. No lymphadenopathy CHEST: Clear to auscultation, breath sounds equal. No wheezing, rhonchi, rales, or stridor. No respiratory distress, speaks in full sentences no acute cough, SAO2 98% on room air. HEART: Regular rate and rhythm. No murmur heard. SKIN: Warm, dry, no rash. NEURO: Alert and oriented x3. PSYCH: Normal mood and affect Course Course Emergency Course: Patient is aware of diagnosis, understands and agrees to treatment plan.? Anticipatory guidance given.? Patient agrees to follow-up as directed and is aware of reasons to seek care at the emergency department. Portions of this record may have been created with voice recognition software Level of Care: Express Care Visit Vital Signs Vital signs: Vital Signs Temperature 36.9 C 12/09/24 13:48 Pulse Rate 84 12/09/24 13:48 Respiratory Rate 18 12/09/24 13:48 Blood Pressure 107/76 12/09/24 13:48 Pulse Oximetry 98 12/09/24 13:48 Oxygen Delivery Room Air 12/09/24 13:48 Temperature 36.9 C 12/09/24 13:48 Pulse Rate 84 12/09/24 13:48 Respiratory Rate 18 12/09/24 13:48 Blood Pressure 107/76 12/09/24 13:48 Pulse Oximetry 98 12/09/24 13:48 Oxygen Delivery Room Air 12/09/24 13:48 Reviewed MDM - Eye Problem Differential Diagnosis Differential diagnosis: Likely conjunctivitis and other (mucoid drainage eyes, rhinitis, fever with chills and body aches yesterday, Influenza, COVID) Medical Records Attestation: I reviewed the patient's medical records. Lab Data Attestation: I reviewed the patient's lab results. Lab results narrative: Influenza A positive, Influenza B negative, COVID antigen negative Labs: Lab Results 12/09/24 Range/Units 16:12 POC Influenza A Ag Positive (Negative) POC Influenza B Ag Negative (Negative) POC SARS CoV-2 Ag Negative (Negative) reviewed Critical Care Time Critical Care Time Critical Care Time: No Discharge Plan Discharge Clinical Impression: Influenza A Conjunctivitis Qualifiers: Conjunctivitis type: acute Acute conjunctivitis type: unspecified Laterality: bilateral Qualified Code(s): H10.33 - Unspecified acute conjunctivitis, bilateral Patient Disposition: Home, Self-Care Condition: Stable Instructions: Antibiotic Form, Influenza (ED), Conjunctivitis (ED) Additional Instructions: Increase fluids especially juices and water [id number] cough and cold medicine of your choice for your symptoms Tylenol or ibuprofen for any fever pain Zyrtec Claritin or Mattie daily heat to the face 20-30 minutes 4-6 times a day for pain Salt water gargles, throat lozenges or throat sprays as desired Eyedrops as prescribed complete all doses Must be fever free for 24 hours without use of Tylenol or ibuprofen before he can return to work Patient Language: Bulgarian Prescriptions: No Action No Home Medications Follow-up/Referrals: UNKNOWN,DOCTOR [Primary Care Provider] - Stand Alone Forms: Work/School Release IP Time of Disposition: 16:01 Quality [place] Coma Scale Eyes: Open Verbal: Oriented and Alert Motor: Follows Commands [place] Coma Total Score: 15
[2024-12-09 16:13] LABS: EDCOVIDSCREEN Negative (Negative); EDINFLUASCREEN Positive (Negative); EDINFLUBSCREEN Negative (Negative)
== END 2024-12-09 16:13 | disposition home or self-care (01) ==
PROVIDERS: Emergency Provider Registered Nurse
DX: J10.1 Influenza due to other identified influenza virus with other respiratory manifestations (principal); H10.33 Unspecified acute conjunctivitis, bilateral; Z20.822 Contact with and (suspected) exposure to COVID-19
CPT/HCPCS: 87426; 87804; 99212; G0463